=== PATIENT | male | born 2000 | race Caucasian/White ===

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

== ENCOUNTER 2020-06-02 12:27 | Emergency (ER) | payer SELFPAY ==
[~2020-06-02] VITALS: Ht 187.9 cm; Wt 133.7 kg
[2020-06-02 12:31] VITALS: BP 133/99
--- NOTE | 2020-06-02 12:47 | ED Abdominal Pain ---
General Chief Complaint: Abdominal/GI Problems Stated Complaint: STOMACH PAIN History of Present Illness Date Seen by Provider: Jun 02, 2020 Time Seen by Provider: 12:40 Initial Comments 19-year-old male presents with upper abdominal pain since he woke up this morning, worse after eating. Pain is kind of waxed and waned, but has not completely resolved. Denies any associated fever or chills, nausea or vomiting, constipation or diarrhea. He had a normal bowel movement this morning without any change of pattern. Did not eat anything unusual last night or this morning and he typically does not get much abdominal pain. Allergies and Home Medications Allergies Coded Allergies: Penicillins (Verified Allergy, Unknown, 06/02/20) Patient Home Medication List Home Medication List Reviewed: Yes Review of Systems Review of Systems Constitutional: No chills, No fever, No malaise, No weakness EENTM: No Symptoms Reported Respiratory: Denies Cough, Denies Shortness of Air Cardiovascular: Denies Chest Pain, Denies Palpitations, Denies Syncope Gastrointestinal: See HPI; Denies Abdomen Distended; Abdominal Pain; Denies Constipated, Denies Diarrhea, Denies Difficulty Swallowing, Denies Nausea, Denies Poor Appetite, Denies Poor Fluid Intake, Denies Vomiting Musculoskeletal: No back pain, No joint pain Skin: No change in color, No rash Past Eehitqy-Irtzqm-Xxszsr Hx Past Med/Social Hx: Reviewed Nursing Past Med/Soc Hx Patient Social History Alcohol Use: Denies Use Smoking Status: Current Everyday Smoker Type Used: Cigarettes 2nd Hand Smoke Exposure: No Recent Hopitalizations: No Seasonal Allergies Seasonal Allergies: No Past Medical History Surgeries: Yes Appendectomy, Ear Surgery Respiratory: Yes Asthma Cardiac: No Neurological: No Genitourinary: No Gastrointestinal: No Musculoskeletal: No Endocrine: No HEENT: No Cancer: No Psychosocial: No Integumentary: No Blood Disorders: No Physical Exam Vital Signs Vital Signs - First Documented 06/02/20 12:31 Temp 36.8 Pulse 64 Resp 16 B/P (MAP) 133/99 (110) Pulse Ox 97 O2 Delivery Room Air Capillary Refill : Height/Weight/BMI Height: '" Weight: lbs. oz. kg; BMI Method: General Appearance: WD/WN, no apparent distress Respiratory: chest non-tender, lungs clear, normal breath sounds, no respiratory distress, no accessory muscle use Cardiovascular: regular rate, rhythm, no edema, no JVD Gastrointestinal: normal bowel sounds, soft, no organomegaly, no pulsatile mass; No distended, No guarding, No rebound; tenderness (mild epigastric, RUQ and R flank); No mass, No hepatomegaly, No spleenomegaly Extremities: non-tender, no pedal edema Back: normal inspection, no CVA tenderness Skin: normal color, warm/dry Progress/Results/Core Measures Results/Orders My Orders Orders - SHADY ARAGON DO Acute Abd Series (06/02/20 12:47) Vital Signs/I&O 06/02/20 12:31 Temp 36.8 Pulse 64 Resp 16 B/P (MAP) 133/99 (110) Pulse Ox 97 O2 Delivery Room Air Departure Impression Primary Impression: Abdominal pain Qualified Codes: R10.10 - Upper abdominal pain, unspecified Disposition: 01 HOME, SELF-CARE Condition: Stable Departure-Patient Inst. Decision time for Depature: 13:00 Referrals: NO,LOCAL PHYSICIAN (PCP/Family) Primary Care Physician Patient Instructions: Severe Abdominal Pain, Adult (DC) Add. Discharge Instructions: Follow up with your Primary Care Physician in 2 to 3 days if not improving, go to the nearest ER if worse. You are advised to eat a clear liquid diet for the next few days until you are feeling better, at which point you can gradually resume your normal diet. All discharge instructions reviewed with patient and/or family. Voiced understanding. Scripts Hyoscyamine Sulfate (Levsin-Sl) 0.125 Mg Tab.subl 0.125 MG SL Q4H, #10 TAB 0 Refills Prov: SALONISTSHADY SNOW DO 06/02/20 Famotidine (Pepcid) 20 Mg Tablet 20 MG PO BID, #14 TAB Prov: BERENICEVENSTINESHADY DO 06/02/20 BERENICEVENSTINESHADY DO Jun 02, 2020 12:47
[2020-06-02] MEDS ORDERED: FAMO-119 PO (13:03)
[2020-06-02] MEDS ORDERED: HYOS0.1283 SL (13:03)
[2020-06-02] MEDS ORDERED: DICYCLOMINE 10 MG/ML (BENTYL) 2 ML AMP IM STA (13:06)
--- NOTE | 2020-06-02 13:07 | Diagnostic Imaging Report ---
CLINICAL INDICATIONS: Patient complains of mid and upper right abdominal pain. EXAMS: X-ray of the chest PA view and x-ray of the abdomen supine and upright views. COMPARISONS: None. FINDINGS: LUNGS/ PLEURA: Lungs are clear. There is no pneumothorax. There is no pleural effusion. MEDIASTINUM: Unremarkable. PULMONARY VASCULATURE: Unremarkable. HEART: Unremarkable. BONES/ EXTRATHORACIC SOFT TISSUE: Unremarkable. ABDOMEN AND PELVIS: Unremarkable x-ray of the abdomen with nonobstructed bowel gas pattern. There is no evidence of abdominal free air. There is a small amount of stool within the colon There are no focal calcifications overlying the expected regions/ pathways of both kidneys, ureters, and bladder regions. IMPRESSION: 1: Unremarkable chest x-ray exam with no radiographic evidence of acute cardiopulmonary process. 2: Unremarkable x-ray of the abdomen. Dictated by: Dictated on workstation # [id number]
== END 2020-06-02 13:30 | disposition home or self-care (01) ==
LOC: EDUNIT# 12:27 → ER FS 12:29
DX: R10.13 Epigastric pain (principal); I10 Essential (primary) hypertension; F17.210 Nicotine dependence, cigarettes, uncomplicated; Z88.0 Allergy status to penicillin
CPT/HCPCS: 74022

== ENCOUNTER 2020-06-06 07:41 | Emergency (ER) | payer SELFPAY ==
[~2020-06-06] VITALS: Ht 187.9 cm; Wt 127.0 kg
[~2020-06-06 07:41] MED LIST: FAMO-119 PO; HYOS0.1283 SL
[2020-06-06] MEDS ORDERED: morphine INJ 10 MG/ML 1ML (SYR OR VIAL) IVP STA (07:56)
[2020-06-06] MEDS ORDERED: NS IV 1000 ML 1,000 ML IV SCH (08:00)
[2020-06-06] MEDS ORDERED: ONDANSETRON 4 MG/2 ML (SDV) Z0FRAN IVP ONE (08:00)
[2020-06-06] MEDS ORDERED: HALOPERIDOL 5 MG/ML (HALDOL) VIAL IV ONE (08:00)
[2020-06-06 08:11] LABS: HEMATOCRIT 47 % (40-54); HEMOGLOBIN 15.8 G/DL (13.3-17.7); LYMPHOCYTES % (AUTO) 27 % (12-44); MEAN CORPUSCULAR HEMOGLOBIN 27 PG (25-34); MEAN CORPUSCULAR HGB CONC 34 G/DL (32-36); MEAN CORPUSCULAR VOLUME 81 FL (80-99); MEAN PLATELET VOLUME 10.6 FL (7.4-10.4); MONOCYTES % (AUTO) 9 % (0-12); NEUTROPHILS % (AUTO) 62 % (42-75); PLATELET COUNT 278 10^3/uL (130-400); WHITE BLOOD COUNT 13.3 10^3/uL (4.3-11.0)
[2020-06-06 08:12] LABS: BASOPHILS # (AUTO) 0.1 10^3/uL (0.0-0.1); BASOPHILS % (AUTO) 1 % (0-10); EOSINOPHILS # (AUTO) 0.2 10^3/uL (0.0-0.3); EOSINOPHILS % (AUTO) 2 % (0-10); LYMPHOCYTES # (AUTO) 3.6 X 10^3 (1.0-4.0); MONOCYTES # (AUTO) 1.2 X 10^3 (0.0-1.0); NEUTROPHILS # (AUTO) 8.2 X 10^3 (1.8-7.8)
[2020-06-06] MEDS ORDERED: HOLD METFORMIN - RECEIVED CONTRAST 20 ML VIAL IV SCH (08:15)
[2020-06-06] MEDS ORDERED: NS 100 ML (IVPB) BAG IV ONE (08:15)
[2020-06-06] MEDS ORDERED: IOHEXOL 350 MG/ML 100 ML (OMNIPAQUE 350) VIAL IV ONE (08:15)
[2020-06-06] MEDS ORDERED: CATHETER FLUSH 10 ML SYR IV PRN (08:15)
[2020-06-06 08:36] LABS: CARBON DIOXIDE 28 MMOL/L (21-32); CHLORIDE 102 MMOL/L (98-107); SODIUM 141 MMOL/L (135-145)
[2020-06-06 08:37] LABS: ALANINE AMINOTRANSFERASE 27 U/L (0-55); ALBUMIN 4.8 GM/DL (3.2-4.5); ALKALINE PHOSPHATASE 63 U/L (40-136); BILIRUBIN,TOTAL 0.4 MG/DL (0.1-1.0); BUN/CREATININE RATIO 15; CALCIUM 9.8 MG/DL (8.5-10.1); CREATININE SERUM 1.28 MG/DL (0.60-1.30); GFR ESTIMATED > 60; GLUCOSE 111 MG/DL (70-105); LIPASE 28 U/L (8-78); TOTAL PROTEIN 7.9 GM/DL (6.4-8.2)
--- NOTE | 2020-06-06 09:11 | Diagnostic Imaging Report ---
EXAMINATION: CT Abdomen and Pelvis with intravenous contrast. TECHNIQUE: Multiple contiguous axial images were obtained through the abdomen and pelvis after the uneventful administration of intravenous contrast. All CT scans use one or more of the following dose optimizing techniques: automated exposure control, MA and/or KvP adjustment based on a patient size and exam type, or iterative reconstruction. HISTORY: Right upper quadrant pain radiating to the left lower quadrant. Prior history of appendectomy. COMPARISON: None available. FINDINGS: The heart is unremarkable. The included lung bases are clear. The liver, spleen, pancreas, adrenal glands, and kidneys have a normal appearance. The gallbladder is slightly dilated without CT evidence of cholelithiasis. There is no pathologically enlarged mesenteric or retroperitoneal adenopathy. The bowel loops are nondilated. The appendix is surgically absent. There is no free fluid or free air. No acute osseous abnormalities. Ureters and bladder are grossly normal. There is no free air, loculated collection, or adenopathy in the pelvis. IMPRESSION: 1. Slightly dilated gallbladder without CT evidence of cholelithiasis. Consider liver gallbladder ultrasound to further evaluate. 2. No evidence of bowel obstruction, free fluid, or free air. Dictated by: Dictated on workstation # [id number]
--- NOTE | 2020-06-06 09:25 | ED Abdominal Pain ---
General Chief Complaint: Abdominal/GI Problems Stated Complaint: ABD PAIN Nursing Triage Note: Patient reports bilateral upper quadrant abdominal pain that radiates to his RLQ, nausea, and vomiting for 1 week. He states he came to the ED last week and had an abdominal xray that was negative, states he received prescriptions for zofran and pepcid. Patient reports his pain improved slightly, but never fully resolved, states his pain got worse again around 0500 this morning. Sepsis Screen: No Definite Risk Source of Information: Patient History of Present Illness Date Seen by Provider: Jun 06, 2020 Time Seen by Provider: 08:00 Initial Comments Patient is a 19-year-old male with chronic intermittent abdominal pain which has been ongoing for the past several days who presents with epigastric right upper quadrant pain. She states the pain woke him from sleep this morning approximately 2 hours prior to arrival. Pain is described as sharp, continuous and is rated moderate to severe. Pain is migratory. It does not radiate. It is worse with palpation and position change and movement is not relieved by rest. Reports nausea but no vomiting. No fever chills or sweats. No flank pain back pain. No chest pain shortness of breath. No urinary frequency urgency or hematuria. No other acute symptoms or complaints. Previous appendectomy. Patient acknowledges previous daily marijuana use. Timing/Duration: 4-6 Hours Severity/Quality: Moderate Location: Epigastric, Other Radiation: Other Activities at Onset: Other Modifying Factors: Improves With Other Associated Symptoms: Other Allergies and Home Medications Allergies Coded Allergies: Penicillins (Verified Allergy, Unknown, 06/02/20) Home Medications Famotidine 20 Mg Tablet, 20 MG PO BID Prescribed by: SHADY ARAGON on 06/02/20 1303 Hyoscyamine Sulfate 0.125 Mg Tab.subl, 0.125 MG SL Q4H Prescribed by: SHADY GUALLPASTEDY on 06/02/20 1303 Patient Home Medication List Home Medication List Reviewed: Yes Review of Systems Review of Systems Constitutional: see HPI EENTM: See HPI Respiratory: See HPI Cardiovascular: See HPI Genitourinary: See HPI Musculoskeletal: see HPI Skin: see HPI Psychiatric/Neurological: See HPI Endocrine: See HPI Hematologic/Lymphatic: See HPI All Other Systems Reviewed Negative Unless Noted: Yes Past Ndsiqsk-Dvjcpx-Cktnqp Hx Past Med/Social Hx: Reviewed Nursing Past Med/Soc Hx Patient Social History Alcohol Use: Denies Use Drug of Choice: marijuana Smoking Status: Current Everyday Smoker Type Used: Cigarettes 2nd Hand Smoke Exposure: No Recent Infectious Disease Expo: No Recent Hopitalizations: No Seasonal Allergies Seasonal Allergies: No Past Medical History Surgeries: Yes Appendectomy, Ear Surgery Respiratory: Yes Asthma Cardiac: No Neurological: No Genitourinary: No Gastrointestinal: No Musculoskeletal: No Endocrine: No HEENT: No Cancer: No Psychosocial: No Integumentary: No Blood Disorders: No Physical Exam Vital Signs Vital Signs - First Documented 06/06/20 08:18 Temp 36.3 Pulse 76 Resp 22 B/P (MAP) 148/93 (111) Pulse Ox 97 O2 Delivery Room Air Capillary Refill : Less Than 3 Seconds Height/Weight/BMI Height: '" Weight: lbs. oz. kg; 35.00 BMI Method: General Appearance: mild distress HEENT: PERRL/EOMI, normal ENT inspection, pharynx normal Neck: non-tender, full range of motion, supple Respiratory: chest non-tender, lungs clear Cardiovascular: normal peripheral pulses, regular rate, rhythm Gastrointestinal: soft, tenderness, other (Diffuse upper abdominal pain/tenderness.) Extremities: normal range of motion, non-tender Back: normal inspection, no CVA tenderness Neurologic/Psychiatric: morning babysitter II-XII nml as tested, no motor/sensory deficits, alert, oriented x 3 Skin: normal color, warm/dry Focused Exam Sepsis Stage: Ruled Out Progress/Results/Core Measures Results/Orders Lab Results Laboratory Tests Test 06/06/20 08:00 Range/Units White Blood Count 13.3 H 4.3-11.0 10^3/uL Red Blood Count 5.80 4.35-5.85 10^6/uL Hemoglobin 15.8 13.3-17.7 G/DL Hematocrit 47 40-54 % Mean Corpuscular Volume 81 80-99 FL Mean Corpuscular Hemoglobin 27 25-34 PG Mean Corpuscular Hemoglobin Concent 34 32-36 G/DL Red Cell Distribution Width 12.0 10.0-14.5 % Platelet Count 278 130-400 10^3/uL Mean Platelet Volume 10.6 H 7.4-10.4 FL Immature Granulocyte % (Auto) 0 % Neutrophils (%) (Auto) 62 42-75 % Lymphocytes (%) (Auto) 27 12-44 % Monocytes (%) (Auto) 9 0-12 % Eosinophils (%) (Auto) 2 0-10 % Basophils (%) (Auto) 1 0-10 % Neutrophils # (Auto) 8.2 H 1.8-7.8 X 10^3 Lymphocytes # (Auto) 3.6 1.0-4.0 X 10^3 Monocytes # (Auto) 1.2 H 0.0-1.0 X 10^3 Eosinophils # (Auto) 0.2 0.0-0.3 10^3/uL Basophils # (Auto) 0.1 0.0-0.1 10^3/uL Immature Granulocyte # (Auto) 0.1 0.0-0.1 10^3/uL Sodium Level 141 135-145 MMOL/L Potassium Level 4.0 3.6-5.0 MMOL/L Chloride Level 102 98-107 MMOL/L Carbon Dioxide Level 28 21-32 MMOL/L Anion Gap 11 5-14 MMOL/L Blood Urea Nitrogen 19 H 7-18 MG/DL Creatinine 1.28 0.60-1.30 MG/DL Estimat Glomerular Filtration Rate > 60 BUN/Creatinine Ratio 15 Glucose Level 111 H 70-105 MG/DL Calcium Level 9.8 8.5-10.1 MG/DL Corrected Calcium 8.5-10.1 MG/DL Total Bilirubin 0.4 0.1-1.0 MG/DL Aspartate Amino Transf (AST/SGOT) 24 5-34 U/L Alanine Aminotransferase (ALT/SGPT) 27 0-55 U/L Alkaline Phosphatase 63 40-136 U/L Total Protein 7.9 6.4-8.2 GM/DL Albumin 4.8 H 3.2-4.5 GM/DL Lipase 28 8-78 U/L My Orders Orders - FAYE DANIELS DO Cbc With Automated Diff (06/06/20 07:56) Comprehensive Metabolic Panel (06/06/20 07:56) Lipase (06/06/20 07:56) Ns Iv 1000 Ml (Sodium Chloride 0.9%) (06/06/20 08:00) Morphine Injection (Morphine Injection (06/06/20 07:56) Ondansetron Injection (Zofran Injectio (06/06/20 08:00) Haloperidol Injection (Haldol Injectio (06/06/20 08:00) Iohexol Injection (Omnipaque 350 Mg/Ml 1 (06/06/20 08:15) Received Contrast (Hold Metformin- Contr (06/06/20 08:15) Sodium Chloride Flush (Catheter Flush Sy (06/06/20 08:15) Ns (Ivpb) (Sodium Chloride 0.9% Ivpb Bag (06/06/20 08:15) Ct Abdomen/Pelvis W (06/06/20 07:56) Medications Given in ED Current Medications Medications Dose Ordered Sig/Paty Route Start Time Stop Time Status Last Admin Dose Admin Haloperidol Lactate 2.5 mg ONCE ONCE IV 06/06/20 08:00 06/06/20 08:01 DC 06/06/20 08:05 2.5 MG Iohexol 100 ml ONCE ONCE IV 06/06/20 08:15 06/06/20 08:16 DC 06/06/20 08:51 100 ML Ondansetron HCl 4 mg ONCE ONCE IVP 06/06/20 08:00 06/06/20 08:01 DC 06/06/20 08:05 4 MG Sodium Chloride 10 ml NEEDED PRN IV 06/06/20 08:15 06/06/20 08:51 10 ML Sodium Chloride 100 ml ONCE ONCE IV 06/06/20 08:15 06/06/20 08:16 DC 06/06/20 08:51 80 ML Vital Signs/I&O 06/06/20 08:18 Temp 36.3 Pulse 76 Resp 22 B/P (MAP) 148/93 (111) Pulse Ox 97 O2 Delivery Room Air Blood Pressure Mean: 111 Departure Communication (Admissions) CT abdomen pelvis: Slightly distended gallbladder, CT otherwise unremarkable Labs: White blood cell count 13.3 Lab and imaging studies reviewed. Patient resting comfortably of treatment. 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 Recommend supportive care discontinuance of marijuana and PCP follow-up. Return precautions reviewed. Patient verbalizes understanding agreement with discharge instructions prior to departure. Impression Primary Impression: Abdominal pain Disposition: HOME, SELF-CARE Condition: Stable Departure-Patient Inst. Decision time for Depature: 09:24 Referrals: NO,LOCAL PHYSICIAN (PCP/Family) Primary Care Physician Patient Instructions: Nausea and Vomiting, Adult (DC), Abdominal Pain, Adult ED Add. Discharge Instructions: Please take newly prescribed medications as directed and follow-up with your PCP in 2 to 3 days for reevaluation. Avoid all future marijuana exposure. Return to the ED if new or worsening symptoms. All discharge instructions reviewed with patient and/or family. Voiced understanding. Scripts Prochlorperazine Maleate (Compazine) 10 Mg Tablet 10 MG PO Q8H, #10 TAB Prov: FAYE DANIELS DO 06/06/20 FAYE DANIELS DO Jun 06, 2020 09:25
[2020-06-06] MEDS ORDERED: PROC-1 PO (09:26)
[2020-06-06 09:35] VITALS: BP 135/76
== END 2020-06-06 09:35 | disposition home or self-care (01) ==
LOC: EDUNIT# 07:41 → ER FS 07:43
DX: G89.29 Other chronic pain (principal); R10.13 Epigastric pain; R10.84 Generalized abdominal pain; R10.11 Right upper quadrant pain; R10.12 Left upper quadrant pain; J45.909 Unspecified asthma, uncomplicated; F17.210 Nicotine dependence, cigarettes, uncomplicated; Z88.0 Allergy status to penicillin
CPT/HCPCS: 36415; 74177; 80053; 83690; 85025

== ENCOUNTER 2021-01-26 14:25 | Emergency (ER) | payer OTHER ==
[~2021-01-26] VITALS: Ht 185.5 cm; Wt 127.7 kg
[~2021-01-26 14:25] MED LIST changes: +PROC-1 PO
[2021-01-26 14:50] VITALS: BP 131/80
--- NOTE | 2021-01-26 15:44 | Diagnostic Imaging Report ---
CLINICAL INDICATION: Patient with hand injury from punching a metal swingset. EXAM: X-ray of the right hand, AP and lateral views. COMPARISON: None. FINDINGS AND IMPRESSION: 1: There is a slightly distracted fracture of the mid diaphysis of the 4th metacarpal bone with slight dorsal apex angulation. There is mild adjacent soft tissue swelling. 2: There is no other fracture seen on this exam. 3: The remainder of this exam is unremarkable. Dictated by: Dictated on workstation # [id number]
[2021-01-26] MEDS ORDERED: IBUPROFEN 800 MG (MOTRIN) TAB PO ONE (15:45)
--- NOTE | 2021-01-26 16:57 | ED Upper Extremity ---
General Chief Complaint: Upper Extremity Stated Complaint: RIGHT HAND INJURY Nursing Triage Note: Patient reports he became angry and punched a metal swingset with his right hand today. He reports two previous boxer's fractures in that hand. Source: patient History of Present Illness Date Seen by Provider: Jan 26, 2021 Time Seen by Provider: 15:30 Initial Comments Patient is a 20-year-old right-handed male who presents with right hand injury after punching a metal swing set just prior to ED arrival. Patient has history of 2 prior boxer's fracture. Severity: moderate Pain/Injury Location: right hand Method of Injury: other Modifying Factors: Improves With Other Allergies and Home Medications Allergies Coded Allergies: Penicillins (Verified Allergy, Unknown, 06/02/20) Patient Home Medication List Home Medication List Reviewed: Yes Famotidine (Pepcid) 20 Mg Tablet, 20 MG PO BID Prescribed by: SHADY ARAGON on 06/02/20 1303 Hyoscyamine Sulfate (Levsin-Sl) 0.125 Mg Tab.subl, 0.125 MG SL Q4H Prescribed by: SHADY ARAGON on 06/02/20 1303 Prochlorperazine Maleate (Compazine) 10 Mg Tablet, 10 MG PO Q8H Prescribed by: FAYE DANIELS on 06/06/20 0926 Review of Systems Constitutional: see HPI Musculoskeletal: see HPI, other (Hand pain/injury) Past Glrcvlj-Alwvqb-Mzrttv Hx Patient Social History Tobacco Use?: Yes Tobacco type used: Cigarettes Smoking Status: Current Everyday Smoker Substance use?: Yes Substance type: Marijuana Alcohol Use?: No Pt feels they are or have been: No Seasonal Allergies Seasonal Allergies: No Past Medical History Surgeries: Yes Appendectomy, Ear Surgery Respiratory: Yes Asthma Cardiac: No Neurological: No Genitourinary: No Gastrointestinal: No Musculoskeletal: No Endocrine: No HEENT: No Cancer: No Psychosocial: No Integumentary: No Blood Disorders: No Physical Exam Vital Signs Vital Signs - First Documented 01/26/21 14:50 Temp 36.3 Pulse 84 Resp 18 B/P (MAP) 131/80 (97) Pulse Ox 98 O2 Delivery Room Air Capillary Refill : Less Than 3 Seconds Height, Weight, BMI Height: '" Weight: lbs. oz. kg; 37.00 BMI Method: General Appearance: WD/WN, no apparent distress Hand: Right (hand), bone tenderness, deformity, limited ROM, soft tissue tenderness Progress/Results/Core Measures Results/Orders My Orders Orders - FAYE DANIELS DO Hand 3 View Right (01/26/21 14:55) Ibuprofen Tablet (Motrin Tablet) (01/26/21 15:45) Orthopedic Equiment (01/26/21 16:32) Medications Given in ED Current Medications Medications Dose Ordered Sig/Paty Route Start Time Stop Time Status Last Admin Dose Admin Ibuprofen 800 mg ONCE ONCE PO 01/26/21 15:45 01/26/21 15:46 DC 01/26/21 15:44 800 MG Vital Signs/I&O 01/26/21 14:50 Temp 36.3 Pulse 84 Resp 18 B/P (MAP) 131/80 (97) Pulse Ox 98 O2 Delivery Room Air Blood Pressure Mean: 97 Departure Communication (Admissions) Family Conversation Patient with fourth carpal bone fracture. Patient placed in ulnar gutter splint and referred to [facility]. Impression Primary Impression: Fracture of fourth metacarpal bone of right hand Disposition: HOME, SELF-CARE Condition: Stable Departure-Patient Inst. Decision time for Depature: 17:02 Referrals: NO,LOCAL PHYSICIAN (PCP/Family) Primary Care Physician Patient Instructions: Hand Fracture Add. Discharge Instructions: Please wear splint, take ibuprofen for pain and tramadol as needed for additional relief. Follow-up with on-call orthopedic surgeon. Avoid right hand use. Scripts Tramadol HCl (Tramadol HCl) 50 Mg Tablet 50 MG PO Q6H PRN for PAIN for 3 Days, #12 TAB 0 Refills Prov: FAYE DANIELS DO 01/26/21 FAYE DANIELS DO Jan 26, 2021 16:57
[2021-01-26] MEDS ORDERED: TRM50T PO (17:03)
== END 2021-01-26 17:14 | disposition home or self-care (01) ==
LOC: EDUNIT# 14:25 → ER FS 14:28
DX: S62.304A Unspecified fracture of fourth metacarpal bone, right hand, initial encounter for closed fracture (principal); J45.909 Unspecified asthma, uncomplicated; F17.210 Nicotine dependence, cigarettes, uncomplicated; W22.8XXA Striking against or struck by other objects, initial encounter
CPT/HCPCS: 29125; 73130

== ENCOUNTER 2022-02-21 14:10 | Emergency (ER) | payer OTHER ==
[~2022-02-21] VITALS: Ht 185.5 cm; Wt 129.3 kg
[~2022-02-21 14:10] MED LIST changes: +TRM50T PO
[2022-02-21 14:13] VITALS: BP 140/96
== END 2022-02-21 15:28 | disposition left against medical advice (07) ==
LOC: EDUNIT# 14:10 → ER 14:12
DX: R10.10 Upper abdominal pain, unspecified (principal); Z28.310 Unvaccinated for COVID-19
CPT/HCPCS: 99281